=== PATIENT | female | born 1995 | race Caucasian/White ===

== ENCOUNTER 2018-04-16 23:23 | Inpatient (IN) | payer OTHER ==
[~2018-04-16] VITALS: Ht 154.9 cm; Wt 65.8 kg
[2018-04-17] MEDS ORDERED: LACTATED RINGERS 1,000 ML IV SCH (00:45)
[2018-04-17] MEDS ORDERED: NALBUPHINE 10 MG/ML AMP IVP SCH (00:55)
[2018-04-17 01:00] VITALS: BP 121/79
[2018-04-17] MEDS: TERBUTALINE 1 MG/ML VIAL SUBQ SCH (01:20)
[2018-04-17] MEDS ORDERED: FERR325E14 PO (18:29)
[2018-04-17] MEDS ORDERED: PREN-380 PO (18:29)
== END 2018-04-17 02:00 | disposition left against medical advice (07) | DRG 566 ==
LOC: MLD 23:23
PROVIDERS: ADMIT Obstetrics & Gynecology; ATTEND Obstetrics & Gynecology
DX: O26.893 Other specified pregnancy related conditions, third trimester (principal); R10.9 Unspecified abdominal pain; Z53.21 Procedure and treatment not carried out due to patient leaving prior to being seen by health care provider; Z3A.38 38 weeks gestation of pregnancy; Z88.0 Allergy status to penicillin; Z91.018 Allergy to other foods
CPT/HCPCS: J7120

== ENCOUNTER 2018-04-17 18:10 | Inpatient (IN) | payer OTHER ==
[~2018-04-17] VITALS: Ht 154.9 cm; Wt 65.8 kg
[2018-04-17] MEDS ORDERED: FERR325E14 PO (18:29)
[2018-04-17] MEDS ORDERED: PREN-380 PO (18:29)
[2018-04-17] MEDS ORDERED: OXYTOCIN 10 UNITS/ML VIAL IM SCH (18:30)
[2018-04-17] MEDS ORDERED: METHYLERGONOVINE 0.2 MG/ML AMP IM PRN (18:30)
[2018-04-17] MEDS ORDERED: PROMETHAZINE 25 MG/ML VIAL IVP PRN (18:30)
[2018-04-17] MEDS ORDERED: CARBOPROST 250 MCG/ML AMP IM PRN (18:30)
[2018-04-17] MEDS ORDERED: NALBUPHINE 10 MG/ML AMP IVP PRN (18:30)
[2018-04-17 18:31] VITALS: BP 112/71
[2018-04-17 19:13] LABS: BASOPHILS % (AUTO) 0.1 % (0.0-2.0); EOSINOPHILS % (AUTO) 0.1 % (0.0-4.0); HEMATOCRIT 35.5 % (36-48); HEMOGLOBIN 11.7 g/dL (12.0-16.0); LYMPHOCYTES # (AUTO) 1.5 K/uL (2.5-16.5); LYMPHOCYTES % (AUTO) 13.5 % (20.5-51.1); MEAN CORPUSCULAR HEMOGLOBIN 32 pg (27-31); MEAN CORPUSCULAR HGB CONC 33 g/dL (33-37); MEAN CORPUSCULAR VOLUME 95.7 fL (80-94); MONOCYTES # (AUTO) 0.7 K/uL (0.8-1.0); MONOCYTES % (AUTO) 5.9 % (1.7-9.3); NEUTROPHILS # (AUTO) 8.9 K/uL (1.8-7.7); NEUTROPHILS % (AUTO) 80.4 % (42.2-75.2); PLATELET COUNT (AUTO) 197 K/uL (140-450); RED BLOOD CELL COUNT(AUTO) 3.71 MIL/uL (4.20-5.40); RED CELL DISTRIBUTION WIDTH 13.7 % (11.6-13.7); WHITE BLOOD COUNT (AUTO) 11.1 K/uL (4.8-10.8)
[2018-04-17 19:15] LABS: APPEARANCE,URINE SLIGHTLY HAZY (CLEAR); BILIRUBIN,URINE NEGATIVE (NEGATIVE); BLOOD, URINE NEGATIVE (NEGATIVE); COLOR,URINE YELLOW (YELLOW); LEUKOCYTE ESTERASE ,URINE TRACE (NEGATIVE); NITRITE, URINE NEGATIVE (NEGATIVE); UGLUCOSE NEGATIVE (NEGATIVE)
[2018-04-17 19:30] LABS: RBC,URINE 0-5 (RARE) /HPF (0-5)
[2018-04-17] MEDS: LACTATED RINGERS 1,000 ML IV SCH ×2 (20:23→21:18)
[2018-04-17] MEDS ORDERED: BUPIVACAINE 0.125%/NS PREMIX 250 ML ONE (20:32)
[2018-04-17] MEDS ORDERED: OXYTOCIN IV ONE (22:30)
[2018-04-17] MEDS ORDERED: NACL 0.9% IV ONE (22:30)
[2018-04-18] MEDS ORDERED: OXYTOCIN 20 UNITS in NACL 0.9% 1,000 ML IV ONE (00:50)
[2018-04-18] MEDS ORDERED: OXYTOCIN 20 UNITS/LR PREMIX 1,000 ML IV ONE (03:22)
[2018-04-18] MEDS ORDERED: OXYTOCIN 10 UNITS/ML VIAL ONE (03:22)
[2018-04-18] MEDS ORDERED: LIDOCAINE 1% 500 MG/50 ML VIAL INJ SCH (03:25)
[2018-04-18] MEDS ORDERED: LIDOCAINE 1% 500 MG/50 ML VIAL INJ ONE (03:45)
[2018-04-18] MEDS ORDERED: LIDOCAINE 1% 0 ML ONE (04:52)
--- NOTE | 2018-04-18 08:41 | NUR ---
PATIENT HAS BEEN SCREENED AND CATEGORIZED LOW NUTRITION RISK. PATIENT WILL BE SEEN WITHIN 7 DAYS OF ADMISSION. 04/24/[address]
[2018-04-18] MEDS ORDERED: BENZOCAINE/MENTHOL 20%-0.5% 60 GM CAN TP PRN ×2 (10:35→10:40)
[2018-04-18] MEDS ORDERED: HYDROcodone/APAP 5/325 MG 1 TAB TAB PO PRN ×2 (10:35)
[2018-04-18] MEDS ORDERED: SODIUM PHOSPHATE 118 ML ENEM RC PRN (10:35)
[2018-04-18] MEDS ORDERED: oxyCODONE/APAP 5/325 MG 1 TAB TAB PO PRN ×2 (10:35)
[2018-04-18] MEDS ORDERED: BISACODYL 10 MG SUPP RC PRN (10:35)
[2018-04-18] MEDS ORDERED: TEMAZEPAM 15 MG CAP PO PRN (10:35)
[2018-04-18] MEDS ORDERED: OXYTOCIN 20 UNITS in LACTATED RINGERS 1,000 ML IV SCH (10:40)
[2018-04-18] MEDS ORDERED: IBUPROFEN 600 MG TAB PO PRN (10:40)
[2018-04-18] MEDS ORDERED: ACETAMINOPHEN 325 MG TAB PO PRN (10:40)
[2018-04-18] MEDS ORDERED: BISACODYL 5 MG TABEC PO PRN (10:40)
[2018-04-18] MEDS ORDERED: MEASLES, MUMPS, AND RUBELLA 1 VIAL SQVAC PRN (10:40)
[2018-04-19] MEDS ORDERED: INFLUENZA VIRUS VACCINE QUAD 0.5 ML SYR IMVAC PRN (00:30)
[2018-04-19 12:48] LABS: BASOPHILS % (AUTO) 0.3 % (0.0-2.0); EOSINOPHILS # (AUTO) 0.1 K/uL (0-0.4); EOSINOPHILS % (AUTO) 0.7 % (0.0-4.0); HEMATOCRIT 33.9 % (36-48); HEMOGLOBIN 11.4 g/dL (12.0-16.0); LYMPHOCYTES % (AUTO) 15.1 % (20.5-51.1); MEAN CORPUSCULAR HEMOGLOBIN 33 pg (27-31); MEAN CORPUSCULAR HGB CONC 34 g/dL (33-37); MEAN CORPUSCULAR VOLUME 96.6 fL (80-94); MONOCYTES # (AUTO) 0.9 K/uL (0.8-1.0); NEUTROPHILS # (AUTO) 10.2 K/uL (1.8-7.7); NEUTROPHILS % (AUTO) 76.9 % (42.2-75.2); PLATELET COUNT (AUTO) 169 K/uL (140-450); RED BLOOD CELL COUNT(AUTO) 3.51 MIL/uL (4.20-5.40); WHITE BLOOD COUNT (AUTO) 13.3 K/uL (4.8-10.8)
[2018-04-19] MEDS ORDERED: DOCUSATE SOD/SENNA 50/8.6 MG 1 TAB PO SCH (21:00)
[2018-04-20] MEDS ORDERED: FERR325E14 PO (10:05)
[2018-04-20] MEDS ORDERED: ACET-9800 PO (10:07)
== END 2018-04-20 20:15 | disposition home or self-care (01) | DRG 560 ==
LOC: MLD 18:10 → MFCC 04-18 10:00
PROVIDERS: ADMIT Obstetrics & Gynecology; ATTEND Obstetrics & Gynecology
PROC: 10E0XZZ Delivery of Products of Conception, External Approach (ICD-10-PCS; principal; 2018-04-18)
PROC: 0W8NXZZ Division of Female Perineum, External Approach (ICD-10-PCS; 2018-04-18)
PROC: 00HU33Z Insertion of Infusion Device into Spinal Canal, Percutaneous Approach (ICD-10-PCS; 2018-04-18)
PROC: 3E0R3BZ Introduction of Anesthetic Agent into Spinal Canal, Percutaneous Approach (ICD-10-PCS; 2018-04-18)
PROC: 3E02340 Introduction of Influenza Vaccine into Muscle, Percutaneous Approach (ICD-10-PCS; 2018-04-19)
PROC: 3E0234Z Introduction of Serum, Toxoid and Vaccine into Muscle, Percutaneous Approach (ICD-10-PCS; 2018-04-19)
DX: O80 Encounter for full-term uncomplicated delivery (principal); Z23 Encounter for immunization; Z37.0 Single live birth; Z3A.38 38 weeks gestation of pregnancy
CPT/HCPCS: 36415; 51702; 59409; 81001; 85025; 86592; 86886; 86900; 86901; 87086; 90658; 90715; J2001; J2590; J3490; J7030; J7120